=== PATIENT | female | born 1970 | race Two or more races ===

== ENCOUNTER → 2018-07-05 | Outpatient (CLI) | payer SELFPAY | END | disposition home or self-care (01) | LOC: Rad HDHVI 09:37 | PROVIDERS: ATTEND Internal Medicine | DX: M25.562 Pain in left knee (principal); Z88.0 Allergy status to penicillin | CPT/HCPCS: 73562 ==

== ENCOUNTER 2021-07-17 11:45 | Inpatient (IN) | payer BC, OTHER ==
[~2021-07-17] VITALS: Ht 160 cm; Wt 98.0 kg
[2021-07-17] MEDS ORDERED: IPRATROPIUM BROM 0.5 MG/2.5ML INH SOL NEB ONE (12:45)
[2021-07-17] MEDS ORDERED: ALBUTEROL SULF 2.5 MG/0.5ML(0.5%) NEB SOLN NEB ONE (12:45)
[2021-07-17] MEDS ORDERED: methylPREDNISolone SOD SUCC 125 MG/2 ML VL IV ONE (13:00)
[2021-07-17 13:49] LABS: Basophils # (auto) 0.1 10 ^3/uL (0-0.2); Basophils % (auto) 0.4 % (0.0-2.0); Eosinophils # (auto) 0 10 ^3/uL (0-0.8); Hematocrit 50.5 % (36.0-46.0); Hemoglobin 16.7 g/dL (12.2-16.2); Lymphocytes # (auto) 1.4 10 ^3/uL (0.4-5.4); Lymphocytes % (auto) 8.4 % (10.0-50.0); Mean Corpuscular Hemoglobin 31.1 pg (28.0-32.0); Mean Corpuscular Hgb Conc. 33.1 g/dL (32.0-36.0); Mean Corpuscular Volume 93.8 fL (80.0-100.0); Monocytes # (auto) 1.3 10 ^3/uL (0-1.3); Neutrophils # (auto) 13.4 10 ^3/uL (1.6-8.6); Neutrophils % (auto) 83.2 % (37.0-80.0); Nucleated Red Blood Cells % 0.2 %; Red Blood Cells 5.38 10^6/uL (4.0-5.20); Red Cell Distribution Width 12.7 % (11.8-14.3); White Blood Cell 16.2 10^3/uL (4.4-10.8)
[2021-07-17 13:56] LABS: Urine Bacteria FEW /hpf (None Seen); Urine Blood Negative /uL (Negative); Urine Specific Gravity 1.029 (1.001-1.035); Urine WBC 10 /hpf (0 - 5)
[2021-07-17 15:47] LABS: Albumin 3.3 g/dL (3.4-5.0); BUN/Creatinine Ratio 20.3; Calcium 9.2 mg/dL (8.5-10.1); Magnesium 2.3 mg/dL (1.6-2.6); Potassium 4.3 mmol/L (3.5-5.1)
[2021-07-17 15:53] LABS: Bilirubin, Total 0.4 mg/dL (0.2-1.0); Total Protein 7.2 g/dL (6.4-8.2)
[2021-07-17] MEDS ORDERED: SODIUM CHLORIDE 0.9% 2,000 ML IV ONE (16:15)
[2021-07-17] MEDS ORDERED: ONDANSETRON HCL 4 MG/2 ML VIAL IV PRN (16:15)
[2021-07-17] MEDS ORDERED: AZITHROMYCIN 500MG/ 250ML 250 ML IV ONE (16:15)
[2021-07-17] MEDS ORDERED: MORPHINE SULFATE 4 MG/ML SYR/VIAL IV PRN (16:15)
[2021-07-17 16:30] LABS: Cholesterol 200 mg/dL (< 200)
[2021-07-17 16:43] LABS: HDL Cholesterol 35 mg/dL (40-59); LDL Cholesterol 134 mg/dL (< 100); Triglycerides 220 mg/dL (< 150)
[2021-07-17] MEDS: SODIUM CHLORIDE 0.9% 2,000 ML IV SCH ×2 (16:50→19:00)
[2021-07-17 16:52] LABS: Amphetamine Screen, Urine NEGATIVE (NEGATIVE); Barbiturate Scree,Urine NEGATIVE (NEGATIVE); Benzodiazephine Screen, Urine NEGATIVE (NEGATIVE); Cannabinoid Screen, Urine NEGATIVE (NEGATIVE); Cocaine Screen, Urine NEGATIVE (NEGATIVE); Opiate Scree,Urine NEGATIVE (NEGATIVE); Phencyclidine Screen, Urine NEGATIVE (NEGATIVE)
[2021-07-17] MEDS: ALBUTEROL SULF 2.5 MG/0.5ML(0.5%) NEB SOLN NEB PRN (19:06)
[2021-07-17 19:32] VITALS: BP 145/76
[2021-07-17 19:54] VITALS: BP 165/88
[2021-07-17 20:00] VITALS: BP 125/73
[2021-07-17] MEDS ORDERED: hydrALAZINE HCL 20 MG/ML VL IV PRN (21:30)
[2021-07-17 21:47] VITALS: BP 125/73
[2021-07-18] VITALS (7 sets, daily range): BP systolic 121–169; BP diastolic 62–104
[2021-07-18 06:30] LABS: Basophils # (auto) 0.1 10 ^3/uL (0-0.2); Basophils % (auto) 0.4 % (0.0-2.0); Eosinophils # (auto) 0 10 ^3/uL (0-0.8); Eosinophils % (auto) 0.1 % (0.0-7.0); Hematocrit 46.9 % (36.0-46.0); Hemoglobin 15.7 g/dL (12.2-16.2); Lymphocytes # (auto) 1.4 10 ^3/uL (0.4-5.4); Lymphocytes % (auto) 9.5 % (10.0-50.0); Mean Corpuscular Hemoglobin 31.6 pg (28.0-32.0); Mean Corpuscular Hgb Conc. 33.5 g/dL (32.0-36.0); Mean Corpuscular Volume 94.3 fL (80.0-100.0); Monocytes # (auto) 0.7 10 ^3/uL (0-1.3); Monocytes % (auto) 5.2 % (0.0-12.0); Neutrophils # (auto) 12.2 10 ^3/uL (1.6-8.6); Neutrophils % (auto) 84.8 % (37.0-80.0); Nucleated Red Blood Cells % 0.1 %; Red Blood Cells 4.98 10^6/uL (4.0-5.20); Red Cell Distribution Width 12.5 % (11.8-14.3); White Blood Cell 14.3 10^3/uL (4.4-10.8)
[2021-07-18 06:44] LABS: Potassium 4.3 mmol/L (3.5-5.1)
[2021-07-18 06:50] LABS: Albumin 3.1 g/dL (3.4-5.0); BUN/Creatinine Ratio 18.3
[2021-07-18 06:57] LABS: Bilirubin, Total 0.3 mg/dL (0.2-1.0); Total Protein 6.5 g/dL (6.4-8.2)
[2021-07-18] MEDS: ENOXAPARIN SOD 40 MG/0.4 ML SYRINGE SC SCH ×2 (09:17→10:00)
[2021-07-18] MEDS: ACETAMINOPHEN 325 MG TAB PO PRN (09:18)
[2021-07-18] MEDS ORDERED: AZITHROMYCIN 500MG/ 250ML 250 ML IV SCH (10:00)
[2021-07-18] MEDS: ALBUTEROL SULF 2.5 MG/0.5ML(0.5%) NEB SOLN NEB PRN ×2 (10:22→21:04)
[2021-07-18] MEDS ORDERED: InsuLIN REG 1unit/0.01ml Soln (100units/ml) SC ONE (11:30)
[2021-07-18] MEDS ORDERED: DEXTROSE (50%) 50ML SYRG IV PRN (11:30)
[2021-07-18] MEDS: InsuLIN REG 1unit/0.01ml Soln (100units/ml) SC SCH ×3 (13:46→23:28)
[2021-07-18] MEDS: ACCU-CHEK COMFORT CURVE STRIP VI SCH ×3 (13:48→23:26)
[2021-07-18] MEDS ORDERED: levoFLOXacin 250 MG TAB PO ONE (16:45)
[2021-07-18] MEDS ORDERED: MORPHINE SULFATE INJECTION 2 MG/ML SYRG IV PRN (17:00)
[2021-07-18] MEDS ORDERED: methylPREDNISolone SOD SUCC 40 MG/ML VL IV ONE (17:00)
[2021-07-19 05:00] VITALS: BP 134/79
[2021-07-19] MEDS: NICOTINE 21MG/24 HR TOPICAL PATCH TD SCH ×2 (06:10→10:00)
[2021-07-19] MEDS: ACCU-CHEK COMFORT CURVE STRIP VI SCH ×3 (06:11→18:22)
[2021-07-19] MEDS: INSULIN LANTUS (GLARGINE) 1 /0.01ml (100units/ml) SC SCH (06:14)
[2021-07-19] MEDS: InsuLIN REG 1unit/0.01ml Soln (100units/ml) SC SCH ×3 (06:14→18:23)
[2021-07-19] MEDS: ALBUTEROL SULF 2.5 MG/0.5ML(0.5%) NEB SOLN NEB PRN ×4 (06:19→22:06)
[2021-07-19 08:46] VITALS: BP 142/65
[2021-07-19] MEDS: levoFLOXacin 250 MG TAB PO SCH (09:22)
[2021-07-19] MEDS: ASPirin-EC 81 mg tab PO SCH (09:22)
[2021-07-19] MEDS: methylPREDNISolone SOD SUCC 40 MG/ML VL IV SCH (09:23)
[2021-07-19] MEDS: BUDESONIDE (INHALATION) 0.5 MG/2 ML NEB NEB SCH ×2 (11:21→22:06)
[2021-07-19 13:00] VITALS: BP 138/81
[2021-07-19] MEDS: LOSARTAN POTASSIUM 50 MG TAB PO SCH (13:15)
[2021-07-19 17:00] VITALS: BP 147/81
[2021-07-19] MEDS: ATORVASTATIN 20 MG TAB PO SCH (21:23)
[2021-07-19 21:59] VITALS: BP 170/85
[2021-07-20 05:06] VITALS: BP 126/72
[2021-07-20] MEDS: InsuLIN REG 1unit/0.01ml Soln (100units/ml) SC SCH ×4 (06:00→17:40)
[2021-07-20] MEDS: ACCU-CHEK COMFORT CURVE STRIP VI SCH ×4 (06:12→17:39)
[2021-07-20] MEDS: INSULIN LANTUS (GLARGINE) 1 /0.01ml (100units/ml) SC SCH (06:23)
[2021-07-20] MEDS: BUDESONIDE (INHALATION) 0.5 MG/2 ML NEB NEB SCH ×2 (06:41→19:36)
[2021-07-20] MEDS: NICOTINE 21MG/24 HR TOPICAL PATCH TD SCH (08:39)
[2021-07-20] MEDS: levoFLOXacin 250 MG TAB PO SCH (08:40)
[2021-07-20] MEDS: methylPREDNISolone SOD SUCC 40 MG/ML VL IV SCH (08:40)
[2021-07-20] MEDS: LOSARTAN POTASSIUM 50 MG TAB PO SCH (08:40)
[2021-07-20] MEDS: ASPirin-EC 81 mg tab PO SCH (08:40)
[2021-07-20 09:00] VITALS: BP 109/65
[2021-07-20 13:00] VITALS: BP 132/77
[2021-07-20] MEDS: ALBUTEROL SULF 2.5 MG/0.5ML(0.5%) NEB SOLN NEB PRN ×2 (15:08→19:36)
[2021-07-20] MEDS: ACETAMINOPHEN 325 MG TAB PO PRN (16:26)
[2021-07-20 17:00] VITALS: BP 129/61
[2021-07-20] MEDS: metFORMIN HYDROCHLORIDE 500 MG TAB PO SCH (17:39)
[2021-07-20] MEDS ORDERED: INSULIN LANTUS (GLARGINE) 1 /0.01ml (100units/ml) SC ONE (18:00)
[2021-07-20] MEDS ORDERED: InsuLIN REG 1unit/0.01ml Soln (100units/ml) SC ONE (19:00)
[2021-07-20] MEDS ORDERED: DEXTROSE (50%) 50ML SYRG IV PRN (21:45)
[2021-07-20] MEDS: ATORVASTATIN 20 MG TAB PO SCH (22:30)
[2021-07-21] MEDS: ACCU-CHEK COMFORT CURVE STRIP VI SCH ×6 (00:20→22:10)
[2021-07-21 00:47] VITALS: BP 129/61
[2021-07-21] MEDS: InsuLIN REG 1unit/0.01ml Soln (100units/ml) SC SCH ×3 (00:58→07:57)
[2021-07-21 05:00] VITALS: BP 125/73
[2021-07-21] MEDS: INSULIN LANTUS (GLARGINE) 1 /0.01ml (100units/ml) SC SCH (06:15)
[2021-07-21] MEDS: methylPREDNISolone SOD SUCC 40 MG/ML VL IV SCH (08:26)
[2021-07-21] MEDS: metFORMIN HYDROCHLORIDE 500 MG TAB PO SCH ×2 (08:27→17:36)
[2021-07-21] MEDS: ASPirin-EC 81 mg tab PO SCH (08:27)
[2021-07-21] MEDS: levoFLOXacin 250 MG TAB PO SCH (08:27)
[2021-07-21] MEDS: LOSARTAN POTASSIUM 50 MG TAB PO SCH (08:40)
[2021-07-21] MEDS: NICOTINE 21MG/24 HR TOPICAL PATCH TD SCH (08:40)
[2021-07-21 09:00] VITALS: BP 103/63
[2021-07-21] MEDS ORDERED: DEXTROSE (50%) 50ML SYRG IV PRN (09:45)
[2021-07-21] MEDS: ALBUTEROL SULF 2.5 MG/0.5ML(0.5%) NEB SOLN NEB PRN ×2 (10:00→14:20)
[2021-07-21] MEDS: BUDESONIDE (INHALATION) 0.5 MG/2 ML NEB NEB SCH ×2 (10:00→22:00)
[2021-07-21 10:14] LABS: Basophils # (auto) 0.1 10 ^3/uL (0-0.2); Basophils % (auto) 0.6 % (0.0-2.0); Eosinophils # (auto) 0.1 10 ^3/uL (0-0.8); Eosinophils % (auto) 0.5 % (0.0-7.0); Hematocrit 48.1 % (36.0-46.0); Hemoglobin 16.4 g/dL (12.2-16.2); Lymphocytes # (auto) 2.3 10 ^3/uL (0.4-5.4); Lymphocytes % (auto) 15.7 % (10.0-50.0); Mean Corpuscular Hemoglobin 31.8 pg (28.0-32.0); Mean Corpuscular Hgb Conc. 34.1 g/dL (32.0-36.0); Mean Corpuscular Volume 93.1 fL (80.0-100.0); Monocytes # (auto) 0.6 10 ^3/uL (0-1.3); Monocytes % (auto) 4.3 % (0.0-12.0); Neutrophils # (auto) 11.7 10 ^3/uL (1.6-8.6); Neutrophils % (auto) 78.9 % (37.0-80.0); Nucleated Red Blood Cells % 0.2 %; Red Blood Cells 5.17 10^6/uL (4.0-5.20); Red Cell Distribution Width 12.3 % (11.8-14.3); White Blood Cell 14.8 10^3/uL (4.4-10.8)
[2021-07-21 10:35] LABS: Calcium 8.8 mg/dL (8.5-10.1); Potassium 3.9 mmol/L (3.5-5.1)
[2021-07-21 10:39] LABS: BUN/Creatinine Ratio 22.8
[2021-07-21] MEDS ORDERED: LORazepam 0.5 MG TAB PO PRN (11:15)
[2021-07-21] MEDS ORDERED: InsuLIN REG 1unit/0.01ml Soln (100units/ml) SC SCH ×2 (11:30→22:00)
[2021-07-21] MEDS: INSULIN 70/30 1unit/0.01ml Susp (100units/ml) SC SCH ×2 (11:45→17:32)
[2021-07-21 13:00] VITALS: BP 107/59
[2021-07-21 16:57] VITALS: BP 125/70
[2021-07-21 21:46] VITALS: BP 111/55
[2021-07-21] MEDS: ATORVASTATIN 20 MG TAB PO SCH (22:09)
[2021-07-22] MEDS: ALBUTEROL SULF 2.5 MG/0.5ML(0.5%) NEB SOLN NEB PRN ×2 (03:29→07:31)
[2021-07-22 04:57] VITALS: BP 143/86
[2021-07-22] MEDS: ACCU-CHEK COMFORT CURVE STRIP VI SCH ×3 (06:05→17:00)
[2021-07-22] MEDS: NICOTINE 21MG/24 HR TOPICAL PATCH TD SCH (06:07)
[2021-07-22] MEDS ORDERED: INSULIN 70/30 1unit/0.01ml Susp (100units/ml) SC SCH (08:00)
[2021-07-22] MEDS: ASPirin-EC 81 mg tab PO SCH (09:31)
[2021-07-22] MEDS: BUDESONIDE (INHALATION) 0.5 MG/2 ML NEB NEB SCH (09:31)
[2021-07-22] MEDS: methylPREDNISolone SOD SUCC 40 MG/ML VL IV SCH (09:31)
[2021-07-22] MEDS: levoFLOXacin 250 MG TAB PO SCH (09:31)
[2021-07-22] MEDS: LOSARTAN POTASSIUM 50 MG TAB PO SCH (09:32)
[2021-07-22] MEDS: metFORMIN HYDROCHLORIDE 500 MG TAB PO SCH (09:33)
[2021-07-22] MEDS: INSULIN 70/30 1unit/0.01ml Susp (100units/ml) SC SCH ×2 (12:04→17:30)
[2021-07-22 12:51] VITALS: BP 136/88
[2021-07-22] MEDS ORDERED: METF-370 PO (13:28)
[2021-07-22] MEDS ORDERED: LEVO-28 PO (13:28)
[2021-07-22] MEDS ORDERED: NIC21P TD (13:28)
[2021-07-22] MEDS ORDERED: LOSA-69 PO (13:28)
[2021-07-22] MEDS ORDERED: ATOR20TA50 PO (13:28)
[2021-07-22] MEDS ORDERED: PRED20TA2 PO (13:28)
[2021-07-22] MEDS ORDERED: FLUT250M2 INH (13:42)
[2021-07-22] MEDS ORDERED: ALBUAER3 IN (13:42)
[2021-07-22] MEDS ORDERED: INS7030I SC ×3 (13:42→13:43)
[2021-07-22 16:38] VITALS: BP 106/70
== END 2021-07-22 15:41 | disposition home or self-care (01) | DRG 190 ==
LOC: ER 11:45 → TELE 16:01 → TELE-CENTR 18:14 → CENTRAL 07-21 11:16
PROVIDERS: ADMIT Registered Nurse; ATTEND Internal Medicine
DX: J44.1 Chronic obstructive pulmonary disease with (acute) exacerbation (principal); J96.01 Acute respiratory failure with hypoxia; N39.0 Urinary tract infection, site not specified; N18.2 Chronic kidney disease, stage 2 (mild); T38.0X5A Adverse effect of glucocorticoids and synthetic analogues, initial encounter; I12.9 Hypertensive chronic kidney disease with stage 1 through stage 4 chronic kidney disease, or unspecified chronic kidney disease; E66.01 Morbid (severe) obesity due to excess calories; E11.65 Type 2 diabetes mellitus with hyperglycemia; E11.22 Type 2 diabetes mellitus with diabetic chronic kidney disease; F17.200 Nicotine dependence, unspecified, uncomplicated; E78.5 Hyperlipidemia, unspecified; Z20.822 Contact with and (suspected) exposure to COVID-19; Z68.37 Body mass index [BMI] 37.0-37.9, adult; Z86.16 Personal history of COVID-19; Z88.0 Allergy status to penicillin; Z71.6 Tobacco abuse counseling
CPT/HCPCS: 36415; 36600; 71046; 80048; 80053; 80061; 80307; 81001; 82805; 82962; 83036; 83615; 83735; 83880; 84443; 84484; 85025; 85379; 87040; 87086; 93005; 94640; 96365; 96375; 99291; G0378; J1815

== ENCOUNTER → 2021-09-02 | Outpatient (CLI) | payer BC ==
[~2021-09-02] MED LIST: ALBUAER3 IN; ALBUTEROL SULF 2.5 MG/0.5ML(0.5%) NEB SOLN ONE; ATOR20TA50 PO; FLUT250M2 INH; INS7030I SC; LEVO-28 PO; LOSA-69 PO; METF-370 PO; NIC21P TD; PRED20TA2 PO
== END | disposition home or self-care (01) ==
LOC: RT 13:46
PROVIDERS: ATTEND Internal Medicine Pulmonary Disease
DX: J44.9 Chronic obstructive pulmonary disease, unspecified (principal)
CPT/HCPCS: 94060

== ENCOUNTER → 2021-09-30 | Outpatient (CLI) | payer BC ==
[~2021-09-30] MED LIST changes: -ALBUTEROL SULF 2.5 MG/0.5ML(0.5%) NEB SOLN ONE
[2021-09-30 09:10] LABS: Basophils # (auto) 0.1 10 ^3/uL (0-0.2); Basophils % (auto) 0.8 % (0.0-2.0); Eosinophils # (auto) 0.1 10 ^3/uL (0-0.8); Eosinophils % (auto) 1.9 % (0.0-7.0); Hematocrit 44.8 % (36.0-46.0); Hemoglobin 14.8 g/dL (12.2-16.2); Lymphocytes % (auto) 27.6 % (10.0-50.0); Mean Corpuscular Hemoglobin 30.7 pg (28.0-32.0); Mean Corpuscular Hgb Conc. 33.1 g/dL (32.0-36.0); Mean Corpuscular Volume 92.8 fL (80.0-100.0); Monocytes # (auto) 0.4 10 ^3/uL (0-1.3); Monocytes % (auto) 6.1 % (0.0-12.0); Neutrophils # (auto) 4.5 10 ^3/uL (1.6-8.6); Neutrophils % (auto) 63.6 % (37.0-80.0); Nucleated Red Blood Cells % 0.1 %; Red Blood Cells 4.83 10^6/uL (4.0-5.20); Red Cell Distribution Width 13.1 % (11.8-14.3); White Blood Cell 7.1 10^3/uL (4.4-10.8)
[2021-09-30 11:04] LABS: Follicle Stimulating Hormone 37.04 IU/L (SEE BELOW); Leuteinizing Hormone 26.9 IU/L
== END | disposition home or self-care (01) ==
LOC: LAB 08:48
PROVIDERS: ATTEND Obstetrics & Gynecology
DX: N93.9 Abnormal uterine and vaginal bleeding, unspecified (principal)
CPT/HCPCS: 36415; 82670; 83001; 83002; 84403; 84443; 85025

== ENCOUNTER 2022-12-09 11:11 | Emergency (ER) | payer BC, OTHER ==
[~2022-12-09] VITALS: Ht 172.7 cm; Wt 100.0 kg
[~2022-12-09 11:11] MED LIST changes: -LEVO-28 PO; +LEVO500T91 PO; -LOSA-69 PO; +LOSA50TA46 PO
[2022-12-09] MEDS ORDERED: NALOXONE HCL 1MG/ML 2ML SYRINGE IV ONE (11:45)
[2022-12-09] MEDS ORDERED: ONDANSETRON HCL 4 MG/2 ML VIAL IV ONE (12:00)
[2022-12-09] MEDS ORDERED: SODIUM CHLORIDE 0.9% 500 ML IVB ONE (12:00)
[2022-12-09 12:11] VITALS: PULSE 70; RESP 20; O2SAT 94
[2022-12-09 12:15] LABS: Basophils # (auto) 0 10 ^3/uL (0-0.2); Basophils % (auto) 0.5 % (0.0-2.0); Eosinophils # (auto) 0 10 ^3/uL (0-0.8); Eosinophils % (auto) 0.5 % (0.0-7.0); Hematocrit 45.6 % (36.0-46.0); Lymphocytes # (auto) 1.2 10 ^3/uL (0.4-5.4); Lymphocytes % (auto) 16.2 % (10.0-50.0); Mean Corpuscular Hemoglobin 30.5 pg (28.0-32.0); Mean Corpuscular Hgb Conc. 32.9 g/dL (32.0-36.0); Mean Corpuscular Volume 92.6 fL (80.0-100.0); Monocytes # (auto) 0.4 10 ^3/uL (0-1.3); Monocytes % (auto) 5.2 % (0.0-12.0); Neutrophils # (auto) 5.9 10 ^3/uL (1.6-8.6); Neutrophils % (auto) 77.6 % (37.0-80.0); Red Blood Cells 4.93 10^6/uL (4.0-5.20); Red Cell Distribution Width 13.2 % (11.8-14.3); White Blood Cell 7.5 10^3/uL (4.4-10.8)
[2022-12-09 13:00] LABS: Alanine Aminotransferase 17 U/L (7-40); Albumin 3.8 g/dL (3.2-4.8); Alkaline Phosphatase 64 U/L (46-116); Anion Gap 2.8 (5-15); Aspartate Aminotransferase 10 U/L (13-40); Blood Alcohol < 3.0 mg/dL (<10); Blood Urea Nitrogen 12 mg/dL (9-23); Carbon Dioxide 29.2 mmol/L (20-30); Chloride 110 mmol/L (98-107); Glucose 143 mg/dL (74-106); Magnesium 2.1 mg/dL (1.6-2.6); Potassium 4.2 mmol/L (3.5-5.1); Sodium 142 mmol/L (136-145)
[2022-12-09 13:01] LABS: Bilirubin, Total 0.5 mg/dL (0.2-1.0); Total Protein 5.8 g/dL (5.7-8.2)
[2022-12-09 14:00] VITALS: BP 120/61; PULSE 74; RESP 14; TEMP 98.3; O2SAT 92
[2022-12-09 14:47] LABS: Urine Bacteria NONE SEEN /hpf (None Seen); Urine Blood Negative /uL (Negative); Urine Clarity Clear (Clear); Urine Color Yellow (Yellow); Urine Mucus FEW (None Seen); Urine Protein, UAD 1+ (Negative); Urine Specific Gravity 1.031 (1.001-1.035); Urine WBC 6 /hpf (0 - 5)
[2022-12-09 14:50] LABS: Amphetamine Screen, Urine Neg (NEGATIVE); Barbiturate Scree,Urine Neg (NEGATIVE); Benzodiazephine Screen, Urine Neg (NEGATIVE); Cannabinoid Screen, Urine Pos (NEGATIVE); Cocaine Screen, Urine Neg (NEGATIVE); Opiate Scree,Urine Neg (NEGATIVE); Phencyclidine Screen, Urine Neg (NEGATIVE)
== END 2022-12-09 15:30 | disposition home or self-care (01) ==
LOC: EDBD 11:11 → ER 11:11
DX: R41.82 Altered mental status, unspecified (principal); F12.10 Cannabis abuse, uncomplicated; R07.89 Other chest pain; J44.9 Chronic obstructive pulmonary disease, unspecified; E11.9 Type 2 diabetes mellitus without complications; E78.5 Hyperlipidemia, unspecified; F17.210 Nicotine dependence, cigarettes, uncomplicated; Z79.4 Long term (current) use of insulin; Z79.899 Other long term (current) drug therapy; Z88.0 Allergy status to penicillin
CPT/HCPCS: 36415; 70450; 71045; 80053; 80307; 80320; 81001; 83735; 84484; 85025; 93005; 96360; 99285; J7040